=== PATIENT | female | born 1960 | race Hispanic/Latino ===

== ENCOUNTER 2016-08-14 06:40 | Day surgery (SDC) | payer OTHER ==
[2016-08-14 06:53] VITALS: BMI 23.6
--- NOTE | 2016-08-14 07:23 | ED PDOC ---
Arrival/HPI - General Chief Complaint: Chest Pain Time Seen by Provider: 08/14/16 06:50 Historian: Patient - History of Present Illness Narrative History of Present Illness (Text): 08/14/16 07:19 A 56 year old female, whose past medical history includes anxiety, presents to the emergency department complaining of non-exertional left sided chest pain this morning. Patient describes the pain as a sharp sensation that lasted for 10 minutes. Patient denies any radiation or current pain. Patient denies any fever, chills, nausea, vomiting, diarrhea, abdominal pain shortness of breath or any other complaints. Patient reports she had an abnormal stress test 2 days ago and has a scheduled catheterization. PMD: Dr. Bustamante Senior Java Programmer: Dr. Morrison Time/Duration: Other (This morning) Symptom Course: Resolved Quality: Other Context: Home Past Medical History - Provider Review Nursing Documentation Reviewed: Yes - Past Medical History Past Medical History: No Previous - Psychiatric Hx Anxiety: Yes Hx Substance Use: No - Surgical History Hx Section: Yes Other/Comment: ectopic - Suicidal Assessment Feels Threatened In Home Enviroment: No Family/Social History - Physician Review Nursing Documentation Reviewed: Yes Family/Social History: CAD/HI Smoking Status: Former Smoker Hx Alcohol Use: Yes Frequency of alcohol use: Socially Hx Substance Use: No Allergies/Home Meds Allergies/Adverse Reactions: Allergies No Known Allergies Allergy (Verified 08/14/16 06:52) Home Medications: Home Meds Medication Instructions Recorded Confirmed LORazepam Half Tablet [Ativan] 08/14/16 Review of Systems - Physician Review All systems were reviewed & negative as marked: Yes - Review of Systems Constitutional: absent: Fevers, Night Sweats Respiratory: absent: SOB Cardiovascular: Chest Pain (Left sided chest pain) Gastrointestinal: absent: Abdominal Pain, Diarrhea, Nausea, Vomiting Physical Exam Vital Signs Reviewed: Yes Vital Signs Temp Pulse Resp BP Pulse Ox 08/14/16 07:52 74 16 104/66 96 08/14/16 06:53 98.3 F 68 16 102/62 100 Temperature: Afebrile Blood Pressure: Normal Pulse: Regular Respiratory Rate: Normal Appearance: Positive for: Well-Appearing, Non-Toxic, Comfortable Pain Distress: None Mental Status: Positive for: Alert and Oriented X 3 - Systems Exam Head: Present: Atraumatic, Normocephalic Pupils: Present: PERRL Extroacular Muscles: Present: EOMI Conjunctiva: Present: Normal Mouth: Present: Moist Mucous Membranes Neck: Present: Normal Range of Motion Respiratory/Chest: Present: Clear to Auscultation, Good Air Exchange. No: Respiratory Distress, Accessory Muscle Use Cardiovascular: Present: Regular Rate and Rhythm, Normal S1, S2. No: Murmurs Abdomen: Present: Normal Bowel Sounds. No: Tenderness, Distention, Peritoneal Signs Back: Present: Normal Inspection Upper Extremity: Present: Normal Inspection, NORMAL PULSES. No: Cyanosis, Edema Lower Extremity: Present: Normal Inspection, NORMAL PULSES. No: Edema, CALF TENDERNESS Neurological: Present: GCS=15, Speech Normal Skin: Present: Warm, Dry, Normal Color. No: Rashes Psychiatric: Present: Alert, Oriented x 3, Normal Insight, Normal Concentration Medical Decision Making ED Course and Treatment: 08/14/16 07:19 EKG shows NSR at 74 BPM with normal axis, normal intervals, no acute ischemia. Interpreted by me. 08/14/16 07:32 Patient reports she took 324mg of Aspirin prior to arrival. Will give additional medication at this time. 08/14/16 07:39 Chest X-ray read and interpreted by me, which shows no acute disease. 08/14/16 07:54 dr bustamante at bedside pt to dental laboratory technician - Lab Interpretations Lab Results: 08/14/16 07:10 08/14/16 07:10 Lab Results 08/14/16 07:10: Sodium 138, Potassium 3.8, Chloride 106, Carbon Dioxide 23, Anion Gap 13, BUN 12, Creatinine 0.7, Est GFR ( Amer) > 60, Est GFR (Non- Af Amer) > 60, Random Glucose 90, Calcium 9.1, Total Bilirubin 0.4, AST 28, ALT 27, Alkaline Phosphatase 42, Lactate Dehydrogenase 286 L, Total Creatine Kinase 58, Troponin I < 0.01, Total Protein 7.3, Albumin 4.3, Globulin 3.0, Albumin/ Globulin Ratio 1.4 08/14/16 07:10: WBC 3.8 L, RBC 4.09, Hgb 12.1, Hct 36.1, MCV 88.3, MCH 29.6, MCHC 33.5, RDW 12.9, Plt Count 237, MPV 9.5, Gran % 46.0 L, Lymph % (Auto) 35.7 H, Potter % (Auto) 10.1 H, Eos % (Auto) 6.3 H, Baso % (Auto) 1.9, Gran # 1.74, Lymph # 1.4, Potter # 0.4, Eos # 0.2, Baso # 0.07 - RAD Interpretation Radiology Orders: 08/14/16 07:17 CHEST PORTABLE [RAD] Stat - Medication Orders Current Medication Orders: Discontinued Medications Aspirin (Aspirin Chewable) 324 mg PO STAT STA Stop: 08/14/16 07:21 Last Admin: 08/14/16 07:34 Dose: - Scribe Statement The provider has reviewed the documentation as recorded by the Chloe Torres Provider Scribe Attestation: All medical record entries made by the Scribe were at my direction and personally dictated by me. I have reviewed the chart and agree that the record accurately reflects my personal performance of the history, physical exam, medical decision making, and the department course for this patient. I have also personally directed, reviewed, and agree with the discharge instructions and disposition. Disposition/Present on Arrival - Present on Arrival Any Indicators Present on Arrival: No History of DVT/PE: No History of Uncontrolled Diabetes: No Urinary Catheter: No History of Decub. Ulcer: No History Surgical Site Infection Following: None - Disposition Have Diagnosis and Disposition been Completed?: Yes Diagnosis: Chest pain Disposition: HOSPITALIZED Disposition Time: 07:54 Condition: STABLE Discharge Instructions (ExitCare): Chest Pain (ED) Referrals: Dany Duke, [Non-Staff] - Follow up with primary
[2016-08-14 07:32] LABS: BASO # 0.07 K/mm3 (0.0-2.0); BASO % 1.9 % (0.0-3.0); EOS # 0.2 (0.0-0.7); EOS % 6.3 % (1.5-5.0); GRAN # 1.74 (1.4-6.5); HEMOGLOBIN 12.1 gm/dL (12.0-16.0); LYMPH # 1.4 (1.2-3.4); LYMPH % 35.7 % (22.0-35.0); MEAN CELL VOLUME 88.3 fL (80.0-105.0); MEAN CORPUSCULAR HEMOGLOBIN 29.6 pg (25.0-35.0); MEAN CORPUSCULAR HGB CONC 33.5 g/dl (31.0-37.0); MEAN PLATELET VOLUME 9.5 fl (7.0-11.0); MONO # 0.4 (0.1-0.6); MONO % 10.1 % (1.0-6.0); PLATELET COUNT 237 10^3/uL (120.0-450.0); RBC 4.09 10^6/uL (3.5-6.1); RED CELL DISTRIBUTION WIDTH 12.9 % (11.5-14.5); WHITE BLOOD COUNT 3.8 10^3/ul (4.5-11.0)
[2016-08-14 07:33] LABS: ALB/GLOB RATIO 1.4 (1.1-1.8); ALBUMIN 4.3 g/dL (3.0-4.8); ALT/SGPT 27 U/L (7-56); AST/SGOT 28 U/L (15-39); BLOOD UREA NITROGEN 12 mg/dL (7-21); CALCIUM 9.1 mg/dL (8.4-10.5); GFR AFRICAN-AMERICAN > 60; GFR NON-AFRICAN AMERICAN > 60
[2016-08-14 07:36] LABS: INR 1.02 (0.93-1.08); PARTIAL THROMBOPLASTIN TIME 25.4 Seconds (23.7-30.8)
[2016-08-14 07:46] LABS: TROPONIN I < 0.01 ng/mL
[2016-08-14] MEDS ORDERED: Nitroglycerin 50mg in D5W 0 MG/0 ML BOTTLE IV ONE (07:55)
[2016-08-14] MEDS ORDERED: Lidocaine 2% Inj (20ml) ONE (07:55)
--- NOTE | 2016-08-14 09:24 | RAD ---
HISTORY: chest pain COMPARISON: No prior. FINDINGS: LUNGS: No active pulmonary disease. PLEURA: No significant pleural effusion identified, no pneumothorax apparent. CARDIOVASCULAR: Normal. OSSEOUS STRUCTURES: No significant abnormalities. VISUALIZED UPPER ABDOMEN: Normal. OTHER FINDINGS: None. IMPRESSION: No active disease.
[2016-08-14] MEDS ORDERED: Midazolam 2 MG/2 ML VIAL ONE ×2 (09:37→09:47)
[2016-08-14] MEDS ORDERED: Iohexol 350 MG/100 ML VIAL ONE (10:03)
[2016-08-14] MEDS ORDERED: Sodium Chloride 0.9% 1,000 ML IV SCH (10:30)
--- NOTE | 2016-08-14 11:04 | CARD ---
APPROVED REPORT EKG Measurement Heart [id number] <Conclusion> Normal sinus rhythm Possible Left atrial enlargement
[2016-08-14 13:20] VITALS: RESP 18
[2016-08-14 13:35] VITALS: TEMP 98.1
[2016-08-14 14:34] VITALS: BP 115/73; PULSE 65; O2SAT 98
== END 2016-08-14 17:00 | disposition home or self-care (01) ==
LOC: ED 06:40 → CATH 07:53 → ED 07:55 → CATH 10:19
PROVIDERS: ATTEND Internal Medicine Cardiovascular Disease
DX: F41.9 Anxiety disorder, unspecified (principal); Z82.49 Family history of ischemic heart disease and other diseases of the circulatory system; Z87.891 Personal history of nicotine dependence
CPT/HCPCS: 71010; 80053; 82550; 83615; 84484; 85025; 85610; 85730; 86850; 86900; 93005; 93458; 99152; 99285; C1769; C2629; J1644; J2250; J3010; J7040 ×2; Q9967 ×2